=== PATIENT | female | born 1960 | race Caucasian/White ===

== ENCOUNTER 2020-11-06 21:11 | Inpatient (IN) ==
[2020-11-06] MEDS ORDERED: ONDANSETRON 4 MG/2 ML VIAL IV STA (21:53)
[2020-11-06] MEDS ORDERED: PIPERACILLIN/TAZOBACTAM 3,375 MG in SODIUM CHLORIDE 0.9% 100 ML IV STA (21:53)
[2020-11-06] MEDS ORDERED: ENOXAPARIN 100 MG/ML SYRINGE SUBCUT STA (21:57)
[2020-11-06] MEDS ORDERED: DEXTROSE 50% 25 GM/50 ML VIAL IV PRN (22:18)
[2020-11-06] MEDS ORDERED: MELATONIN 3 MG TABLET PO PRN (22:18)
[2020-11-06] MEDS ORDERED: GLUCAGON 1 MG VIAL IM PRN (22:18)
[2020-11-06] MEDS ORDERED: diphenhydrAMINE CAP 25 MG CAPSULE PO PRN (22:18)
[2020-11-06] MEDS ORDERED: hydrALAZINE 20 MG/1 ML VIAL IV PRN (22:18)
[2020-11-06] MEDS ORDERED: ONDANSETRON 4 MG/2 ML VIAL IV PRN (22:18)
[2020-11-06] MEDS ORDERED: NICOTINE 21 MG/24 HR PATCH TRANSDERM PRN (22:18)
[2020-11-06 22:36] LABS: Basophils % 0.3 % (0.0-0.8); Eosinophils % 0.1 % (0.00-10.9); Hematocrit 36.1 VOL% (35.7-47.0); Hemoglobin 11.7 GM/DL (12.0-16.0); Immature Granulocytes % 5.5 %; Immature Granulocytes Absolute 0.41 #; Lymphocytes # 0.6 10*3/uL (1.4-4.0); Lymphocytes % 8.3 % (21.3-54.2); Mean Corpuscular HGB Conc 32.4 GM/DL (32-36); Mean Corpuscular Volume 96.3 FL (87-102); Mean Platelet Volume 10.2 FL (9.6-12.0); NRBC # 0.05 10*3/uL; Neutrophils % 83.8 % (38.7-73.9); Platelet Count 335 T/CUMM (130-400); Red Blood Count 3.75 MC/CUMM (3.8-5.5); Red Cell Distribution Width 13.1 % (9.3-17.3); White Blood Count 7.5 T/CUMM (4-12)
[2020-11-06 23:12] LABS: Albumin 2.6 G/DL (3.4-5.0); Bilirubin,Total 0.8 MG/DL (0.20-1.00); Calcium 8.6 MG/DL (8.5-10.1); Osmolality,Calculated 265.5 MOS/KG (273-304); Potassium 4.3 MMOL/L (3.5-5.1); Total Protein 6.8 G/DL (6.4-8.2)
[2020-11-07] MEDS: SODIUM CHLORIDE 0.9% 1,000 ML IV SCH (00:20)
[2020-11-07] MEDS: ALBUMIN 25% 25 GM/100 ML VIAL IV SCH ×6 (00:20→22:22)
[2020-11-07] MEDS: FUROSEMIDE 40 MG/4 ML VIAL IV SCH ×6 (02:13→22:21)
[2020-11-07] MEDS ORDERED: REMDESIVIR 200 MG in SODIUM CHLORIDE 0.9% 210 ML IV ONE (08:00)
[2020-11-07] MEDS ORDERED: ZINC GLUCONATE 50 MG TABLET PO SCH (09:00)
[2020-11-07] MEDS ORDERED: FUROSEMIDE 40 MG/4 ML VIAL IV SCH (09:00)
[2020-11-07] MEDS ORDERED: CHOLECALCIFEROL 1,000 UNIT TABLET PO SCH (09:00)
[2020-11-07] MEDS ORDERED: DEXAMETHASONE 4 MG/1 ML VIAL IV SCH (09:00)
[2020-11-07 09:40] LABS: Basophils % 0.2 % (0.0-0.8); Hematocrit 33.8 VOL% (35.7-47.0); Immature Granulocytes % 5.9 %; Immature Granulocytes Absolute 0.28 #; Lymphocytes # 0.7 10*3/uL (1.4-4.0); Lymphocytes % 14.6 % (21.3-54.2); Mean Corpuscular HGB Conc 32.5 GM/DL (32-36); Mean Corpuscular Volume 96.3 FL (87-102); Mean Platelet Volume 10.3 FL (9.6-12.0); Monocytes % 3.3 % (1.7-12.7); NRBC # 0.04 10*3/uL; Platelet Count 321 T/CUMM (130-400); Red Blood Count 3.51 MC/CUMM (3.8-5.5); Red Cell Distribution Width 13.1 % (9.3-17.3); White Blood Count 4.8 T/CUMM (4-12)
[2020-11-07 10:00] LABS: Albumin 3.7 G/DL (3.4-5.0); Calcium 8.4 MG/DL (8.5-10.1); Osmolality,Calculated 266.5 MOS/KG (273-304); Potassium 3.7 MMOL/L (3.5-5.1); Total Protein 7.3 G/DL (6.4-8.2)
[2020-11-07 10:01] LABS: Atypical Lymphocytes Few; Band Neutrophils 1 % (0-10); Lymphocytes 21 % (20-55); Nucleated Red Blood Cells 1 (0-5); Segmented Neutrophils 74 % (50-85); Total Cells Counted 100
[2020-11-07 10:02] LABS: Macrocytosis Slight; Platelet Estimate Normal; Polychromasia Slight
[2020-11-07] MEDS: AZITHROMYCIN 250 MG TABLET PO SCH (11:15)
[2020-11-07] MEDS: CETIRIZINE 10 MG TABLET PO SCH (11:15)
[2020-11-07] MEDS: ASCORBIC ACID 500 MG TABLET PO SCH ×2 (11:16→22:22)
[2020-11-07] MEDS: ENOXAPARIN 40 MG/0.4 ML SYRINGE SUBCUT SCH ×2 (11:17→22:22)
[2020-11-07] MEDS: FAMOTIDINE 20 MG TABLET PO SCH ×2 (11:18→22:22)
[2020-11-07] MEDS: CHOLECALCIFEROL 5,000 UNIT TABLET PO SCH (15:00)
[2020-11-07] MEDS: DEXAMETHASONE 4 MG/1 ML VIAL IV SCH ×3 (15:18→22:29)
[2020-11-07] MEDS: ZINC GLUCONATE 50 MG TABLET PO SCH (15:18)
[2020-11-07] MEDS: MELATONIN 3 MG TABLET PO SCH (22:21)
[2020-11-08] MEDS: FUROSEMIDE 40 MG/4 ML VIAL IV SCH ×3 (00:19→10:06)
[2020-11-08] MEDS: ALBUMIN 25% 25 GM/100 ML VIAL IV SCH (00:19)
[2020-11-08] MEDS: DEXAMETHASONE 4 MG/1 ML VIAL IV SCH ×8 (01:10→22:16)
[2020-11-08] MEDS: SODIUM CHLORIDE 0.9% 1,000 ML IV SCH (01:10)
[2020-11-08 06:28] LABS: Basophils % 0.1 % (0.0-0.8); Hematocrit 31.6 VOL% (35.7-47.0); Hemoglobin 10.2 GM/DL (12.0-16.0); Immature Granulocytes % 2.5 %; Immature Granulocytes Absolute 0.21 #; Lymphocytes # 0.6 10*3/uL (1.4-4.0); Lymphocytes % 7.2 % (21.3-54.2); Mean Corpuscular HGB Conc 32.3 GM/DL (32-36); Mean Corpuscular Volume 97.5 FL (87-102); Mean Platelet Volume 10.5 FL (9.6-12.0); Monocytes % 4.8 % (1.7-12.7); NRBC # 0.03 10*3/uL; Neutrophils % 85.4 % (38.7-73.9); Platelet Count 339 T/CUMM (130-400); Red Blood Count 3.24 MC/CUMM (3.8-5.5); Red Cell Distribution Width 12.8 % (9.3-17.3); White Blood Count 8.5 T/CUMM (4-12)
[2020-11-08 07:09] LABS: Albumin 5.2 G/DL (3.4-5.0); Calcium 9.4 MG/DL (8.5-10.1); Ferritin 818.4 ng/ml (8-252); Osmolality,Calculated 279.7 MOS/KG (273-304); Potassium 3.4 MMOL/L (3.5-5.1); Total Protein 8.2 G/DL (6.4-8.2)
[2020-11-08] MEDS ORDERED: REMDESIVIR 100 MG in SODIUM CHLORIDE 0.9% 100 ML IV SCH (08:00)
[2020-11-08] MEDS: CHOLECALCIFEROL 5,000 UNIT TABLET PO SCH (10:03)
[2020-11-08] MEDS: ZINC GLUCONATE 50 MG TABLET PO SCH (10:03)
[2020-11-08] MEDS: FAMOTIDINE 20 MG TABLET PO SCH ×2 (10:04→22:16)
[2020-11-08] MEDS: ASCORBIC ACID 500 MG TABLET PO SCH ×2 (10:04→22:16)
[2020-11-08] MEDS: AZITHROMYCIN 250 MG TABLET PO SCH (10:04)
[2020-11-08] MEDS: CETIRIZINE 10 MG TABLET PO SCH (10:48)
[2020-11-08] MEDS: ENOXAPARIN 40 MG/0.4 ML SYRINGE SUBCUT SCH ×2 (10:49→22:15)
[2020-11-08] MEDS: POTASSIUM CHLORIDE 20 MEQ TABLET PO PRN ×3 (12:12→16:28)
[2020-11-08] MEDS: guaiFENesin/DM ER 600-30 MG TABLET PO PRN (14:33)
[2020-11-08] MEDS: IVERMECTIN 3 MG TABLET PO SCH (14:37)
[2020-11-08] MEDS: POTASSIUM CHLORIDE 20 MEQ TABLET PO SCH (22:15)
[2020-11-08] MEDS: MELATONIN 3 MG TABLET PO SCH (22:16)
[2020-11-09 05:11] LABS: Basophils % 0.1 % (0.0-0.8); Hematocrit 35.7 VOL% (35.7-47.0); Hemoglobin 11.2 GM/DL (12.0-16.0); Immature Granulocytes % 3.1 %; Immature Granulocytes Absolute 0.31 #; Lymphocytes # 0.8 10*3/uL (1.4-4.0); Lymphocytes % 7.7 % (21.3-54.2); Mean Corpuscular HGB Conc 31.4 GM/DL (32-36); Mean Corpuscular Volume 98.3 FL (87-102); Mean Platelet Volume 10.6 FL (9.6-12.0); Monocytes % 3.2 % (1.7-12.7); NRBC # 0.03 10*3/uL; Neutrophils % 85.9 % (38.7-73.9); Platelet Count 387 T/CUMM (130-400); Red Blood Count 3.63 MC/CUMM (3.8-5.5); Red Cell Distribution Width 12.9 % (9.3-17.3); White Blood Count 10.1 T/CUMM (4-12)
[2020-11-09 05:43] LABS: Albumin 4.4 G/DL (3.4-5.0); Bilirubin,Total 0.8 MG/DL (0.20-1.00); Ferritin 657.4 ng/ml (8-252); Osmolality,Calculated 285.5 MOS/KG (273-304); Potassium 4.8 MMOL/L (3.5-5.1); Total Protein 7.5 G/DL (6.4-8.2)
[2020-11-09] MEDS: ENOXAPARIN 40 MG/0.4 ML SYRINGE SUBCUT SCH ×2 (10:56→20:47)
[2020-11-09] MEDS: POTASSIUM CHLORIDE 20 MEQ TABLET PO SCH (10:56)
[2020-11-09] MEDS: IVERMECTIN 3 MG TABLET PO SCH (10:58)
[2020-11-09] MEDS: ASCORBIC ACID 500 MG TABLET PO SCH ×2 (10:58→20:47)
[2020-11-09] MEDS: AZITHROMYCIN 250 MG TABLET PO SCH (10:59)
[2020-11-09] MEDS: CETIRIZINE 10 MG TABLET PO SCH (10:59)
[2020-11-09] MEDS: CHOLECALCIFEROL 5,000 UNIT TABLET PO SCH (10:59)
[2020-11-09] MEDS: ZINC GLUCONATE 50 MG TABLET PO SCH (10:59)
[2020-11-09] MEDS: FAMOTIDINE 20 MG TABLET PO SCH ×2 (11:07→20:47)
[2020-11-09] MEDS: MELATONIN 3 MG TABLET PO SCH (20:47)
[2020-11-09] MEDS: ACETAMINOPHEN 325 MG TABLET PO PRN (23:30)
[2020-11-10 04:05] LABS: Eosinophils % 0.2 % (0.00-10.9); Hematocrit 36.5 VOL% (35.7-47.0); Hemoglobin 11.7 GM/DL (12.0-16.0); Immature Granulocytes % 2.2 %; Lymphocytes # 1.4 10*3/uL (1.4-4.0); Lymphocytes % 15.8 % (21.3-54.2); Mean Corpuscular HGB Conc 32.1 GM/DL (32-36); Mean Corpuscular Volume 98.1 FL (87-102); Mean Platelet Volume 10.4 FL (9.6-12.0); Neutrophils % 78.8 % (38.7-73.9); Platelet Count 362 T/CUMM (130-400); Red Blood Count 3.72 MC/CUMM (3.8-5.5); Red Cell Distribution Width 12.9 % (9.3-17.3); White Blood Count 9.1 T/CUMM (4-12)
[2020-11-10 04:34] LABS: Albumin 3.9 G/DL (3.4-5.0); Bilirubin,Total 0.9 MG/DL (0.20-1.00); Calcium 9.2 MG/DL (8.5-10.1); Osmolality,Calculated 277.8 MOS/KG (273-304); Potassium 4.6 MMOL/L (3.5-5.1); Total Protein 6.8 G/DL (6.4-8.2)
[2020-11-10 04:36] LABS: Ferritin 554.2 ng/ml (8-252)
[2020-11-10] MEDS: ACETAMINOPHEN 325 MG TABLET PO PRN (08:57)
[2020-11-10] MEDS: CHOLECALCIFEROL 5,000 UNIT TABLET PO SCH (08:57)
[2020-11-10] MEDS: ASCORBIC ACID 500 MG TABLET PO SCH ×2 (08:58→21:18)
[2020-11-10] MEDS: AZITHROMYCIN 250 MG TABLET PO SCH (08:58)
[2020-11-10] MEDS: FAMOTIDINE 20 MG TABLET PO SCH ×2 (08:58→21:18)
[2020-11-10] MEDS: IVERMECTIN 3 MG TABLET PO SCH (08:58)
[2020-11-10] MEDS: ENOXAPARIN 40 MG/0.4 ML SYRINGE SUBCUT SCH ×2 (08:58→21:14)
[2020-11-10] MEDS: CETIRIZINE 10 MG TABLET PO SCH (08:58)
[2020-11-10] MEDS: ZINC GLUCONATE 50 MG TABLET PO SCH (09:46)
[2020-11-10] MEDS: DEXAMETHASONE 4 MG/1 ML VIAL IV SCH (16:40)
[2020-11-10] MEDS: MELATONIN 3 MG TABLET PO SCH (21:18)
[2020-11-11 05:18] LABS: Ferritin 930.2 ng/ml (8-252)
[2020-11-11 05:22] LABS: Albumin 3.5 G/DL (3.4-5.0); Calcium 9.2 MG/DL (8.5-10.1); Osmolality,Calculated 275.8 MOS/KG (273-304); Potassium 4.9 MMOL/L (3.5-5.1); Total Protein 7.1 G/DL (6.4-8.2)
[2020-11-11] MEDS: ZINC GLUCONATE 50 MG TABLET PO SCH (08:21)
[2020-11-11] MEDS: ASCORBIC ACID 500 MG TABLET PO SCH ×2 (08:21→21:24)
[2020-11-11] MEDS: CHOLECALCIFEROL 5,000 UNIT TABLET PO SCH (08:21)
[2020-11-11] MEDS: ENOXAPARIN 40 MG/0.4 ML SYRINGE SUBCUT SCH ×2 (08:21→21:24)
[2020-11-11] MEDS: CETIRIZINE 10 MG TABLET PO SCH (08:22)
[2020-11-11] MEDS: FAMOTIDINE 20 MG TABLET PO SCH ×2 (08:22→21:24)
[2020-11-11] MEDS: DEXAMETHASONE 4 MG/1 ML VIAL IV SCH (08:22)
[2020-11-11] MEDS: IVERMECTIN 3 MG TABLET PO SCH (08:23)
[2020-11-11] MEDS: guaiFENesin/DM ER 600-30 MG TABLET PO PRN (21:24)
[2020-11-11] MEDS: MELATONIN 3 MG TABLET PO SCH (21:24)
[2020-11-12 05:38] LABS: Basophils % 0.1 % (0.0-0.8); Hematocrit 34.6 VOL% (35.7-47.0); Hemoglobin 11.1 GM/DL (12.0-16.0); Immature Granulocytes % 1.4 %; Immature Granulocytes Absolute 0.12 #; Lymphocytes # 0.9 10*3/uL (1.4-4.0); Lymphocytes % 10.4 % (21.3-54.2); Mean Corpuscular HGB Conc 32.1 GM/DL (32-36); Mean Corpuscular Volume 97.2 FL (87-102); Mean Platelet Volume 10.4 FL (9.6-12.0); Monocytes % 3.4 % (1.7-12.7); Neutrophils % 84.7 % (38.7-73.9); Platelet Count 340 T/CUMM (130-400); Red Blood Count 3.56 MC/CUMM (3.8-5.5); Red Cell Distribution Width 12.7 % (9.3-17.3); White Blood Count 8.6 T/CUMM (4-12)
[2020-11-12 06:01] LABS: Calcium 9.4 MG/DL (8.5-10.1); Osmolality,Calculated 276.8 MOS/KG (273-304); Potassium 4.5 MMOL/L (3.5-5.1)
[2020-11-12 06:03] LABS: Ferritin 1003.1 ng/ml (8-252)
[2020-11-12] MEDS: ASCORBIC ACID 500 MG TABLET PO SCH ×2 (10:00→20:56)
[2020-11-12] MEDS: ZINC GLUCONATE 50 MG TABLET PO SCH (10:03)
[2020-11-12] MEDS: CHOLECALCIFEROL 5,000 UNIT TABLET PO SCH (10:04)
[2020-11-12] MEDS: CETIRIZINE 10 MG TABLET PO SCH (10:04)
[2020-11-12] MEDS: IVERMECTIN 3 MG TABLET PO SCH (10:05)
[2020-11-12] MEDS: FAMOTIDINE 20 MG TABLET PO SCH ×2 (10:05→20:56)
[2020-11-12] MEDS: ENOXAPARIN 40 MG/0.4 ML SYRINGE SUBCUT SCH ×2 (10:07→20:56)
[2020-11-12] MEDS: DEXAMETHASONE 4 MG/1 ML VIAL IV SCH (10:10)
[2020-11-12] MEDS: MELATONIN 3 MG TABLET PO SCH (20:56)
[2020-11-13 05:05] LABS: Basophils % 0.1 % (0.0-0.8); Hematocrit 35.8 VOL% (35.7-47.0); Hemoglobin 11.6 GM/DL (12.0-16.0); Immature Granulocytes % 1.3 %; Immature Granulocytes Absolute 0.11 #; Lymphocytes # 0.8 10*3/uL (1.4-4.0); Lymphocytes % 9.1 % (21.3-54.2); Mean Corpuscular HGB Conc 32.4 GM/DL (32-36); Mean Corpuscular Volume 96.2 FL (87-102); Mean Platelet Volume 10.4 FL (9.6-12.0); Monocytes % 3.8 % (1.7-12.7); Neutrophils % 85.7 % (38.7-73.9); Platelet Count 334 T/CUMM (130-400); Red Blood Count 3.72 MC/CUMM (3.8-5.5); Red Cell Distribution Width 12.8 % (9.3-17.3); White Blood Count 8.8 T/CUMM (4-12)
[2020-11-13 05:20] LABS: Calcium 9.7 MG/DL (8.5-10.1); Osmolality,Calculated 275.8 MOS/KG (273-304); Potassium 5.2 MMOL/L (3.5-5.1)
[2020-11-13 05:24] LABS: Ferritin 785.4 ng/ml (8-252)
[2020-11-13] MEDS: ENOXAPARIN 40 MG/0.4 ML SYRINGE SUBCUT SCH ×2 (08:59→20:43)
[2020-11-13] MEDS: ASCORBIC ACID 500 MG TABLET PO SCH ×2 (09:00→20:43)
[2020-11-13] MEDS: FAMOTIDINE 20 MG TABLET PO SCH ×2 (09:00→20:43)
[2020-11-13] MEDS: CHOLECALCIFEROL 5,000 UNIT TABLET PO SCH (09:00)
[2020-11-13] MEDS: ZINC GLUCONATE 50 MG TABLET PO SCH (09:00)
[2020-11-13] MEDS: DEXAMETHASONE 4 MG/1 ML VIAL IV SCH (09:00)
[2020-11-13] MEDS: CETIRIZINE 10 MG TABLET PO SCH (09:00)
[2020-11-13 17:25] LABS: Osmolality,Calculated 277.1 MOS/KG (273-304); Potassium 4.6 MMOL/L (3.5-5.1)
[2020-11-13] MEDS: MELATONIN 3 MG TABLET PO SCH (20:43)
[2020-11-14 05:27] LABS: Basophils % 0.1 % (0.0-0.8); Eosinophils % 0.1 % (0.00-10.9); Hematocrit 35.7 VOL% (35.7-47.0); Hemoglobin 11.2 GM/DL (12.0-16.0); Immature Granulocytes % 1.5 %; Immature Granulocytes Absolute 0.11 #; Lymphocytes # 1.2 10*3/uL (1.4-4.0); Lymphocytes % 16.1 % (21.3-54.2); Mean Corpuscular HGB Conc 31.4 GM/DL (32-36); Mean Corpuscular Volume 98.3 FL (87-102); Mean Platelet Volume 10.7 FL (9.6-12.0); Monocytes % 6.3 % (1.7-12.7); Neutrophils % 75.9 % (38.7-73.9); Platelet Count 328 T/CUMM (130-400); Red Blood Count 3.63 MC/CUMM (3.8-5.5); Red Cell Distribution Width 12.8 % (9.3-17.3); White Blood Count 7.6 T/CUMM (4-12)
[2020-11-14 05:50] LABS: Lymphocytes 13 % (20-55); Microcytosis 1+; Segmented Neutrophils 80 % (50-85); Total Cells Counted 100
[2020-11-14 05:51] LABS: Platelet Estimate Normal
[2020-11-14 05:56] LABS: Calcium 9.3 MG/DL (8.5-10.1); Osmolality,Calculated 277.7 MOS/KG (273-304); Potassium 4.8 MMOL/L (3.5-5.1)
[2020-11-14 05:59] LABS: Ferritin 621.4 ng/ml (8-252)
[2020-11-14] MEDS: ZINC GLUCONATE 50 MG TABLET PO SCH (09:06)
[2020-11-14] MEDS: CHOLECALCIFEROL 5,000 UNIT TABLET PO SCH (09:06)
[2020-11-14] MEDS: CETIRIZINE 10 MG TABLET PO SCH (09:06)
[2020-11-14] MEDS: FAMOTIDINE 20 MG TABLET PO SCH ×2 (09:06→21:11)
[2020-11-14] MEDS: DEXAMETHASONE 4 MG/1 ML VIAL IV SCH (09:07)
[2020-11-14] MEDS: ASCORBIC ACID 500 MG TABLET PO SCH ×2 (09:07→21:12)
[2020-11-14] MEDS: ENOXAPARIN 40 MG/0.4 ML SYRINGE SUBCUT SCH ×2 (09:07→21:12)
[2020-11-14] MEDS: MELATONIN 3 MG TABLET PO SCH (21:12)
[2020-11-15 05:11] LABS: Basophils % 0.1 % (0.0-0.8); Eosinophils % 0.3 % (0.00-10.9); Hemoglobin 11.1 GM/DL (12.0-16.0); Immature Granulocytes Absolute 0.14 #; Lymphocytes # 1.2 10*3/uL (1.4-4.0); Mean Corpuscular HGB Conc 31.7 GM/DL (32-36); Mean Corpuscular Volume 98.9 FL (87-102); Mean Platelet Volume 10.7 FL (9.6-12.0); Monocytes % 8.2 % (1.7-12.7); Neutrophils % 72.4 % (38.7-73.9); Platelet Count 287 T/CUMM (130-400); Red Blood Count 3.54 MC/CUMM (3.8-5.5); White Blood Count 7.2 T/CUMM (4-12)
[2020-11-15 05:36] LABS: Lymphocytes 17 % (20-55); Platelet Estimate Normal; Segmented Neutrophils 80 % (50-85); Total Cells Counted 100
[2020-11-15 06:13] LABS: Osmolality,Calculated 279.5 MOS/KG (273-304); Potassium 4.3 MMOL/L (3.5-5.1)
[2020-11-15] MEDS: FAMOTIDINE 20 MG TABLET PO SCH ×2 (09:01→20:40)
[2020-11-15] MEDS: CETIRIZINE 10 MG TABLET PO SCH (09:01)
[2020-11-15] MEDS: ASCORBIC ACID 500 MG TABLET PO SCH ×2 (09:01→20:40)
[2020-11-15] MEDS: ZINC GLUCONATE 50 MG TABLET PO SCH (09:01)
[2020-11-15] MEDS: CHOLECALCIFEROL 5,000 UNIT TABLET PO SCH (09:01)
[2020-11-15] MEDS: ENOXAPARIN 40 MG/0.4 ML SYRINGE SUBCUT SCH ×2 (09:02→20:40)
[2020-11-15] MEDS: DEXAMETHASONE 4 MG/1 ML VIAL IV SCH (09:02)
[2020-11-15] MEDS: MELATONIN 3 MG TABLET PO SCH (20:40)
[2020-11-16 06:26] LABS: Basophils % 0.1 % (0.0-0.8); Eosinophils % 0.5 % (0.00-10.9); Hematocrit 35.8 VOL% (35.7-47.0); Hemoglobin 11.3 GM/DL (12.0-16.0); Immature Granulocytes % 3.2 %; Immature Granulocytes Absolute 0.24 #; Lymphocytes # 1.6 10*3/uL (1.4-4.0); Lymphocytes % 21.7 % (21.3-54.2); Mean Corpuscular HGB Conc 31.6 GM/DL (32-36); Mean Platelet Volume 10.2 FL (9.6-12.0); Monocytes % 6.7 % (1.7-12.7); Neutrophils % 67.8 % (38.7-73.9); Platelet Count 289 T/CUMM (130-400); Red Blood Count 3.58 MC/CUMM (3.8-5.5); White Blood Count 7.4 T/CUMM (4-12)
[2020-11-16 06:47] LABS: Calcium 9.3 MG/DL (8.5-10.1); Osmolality,Calculated 274.8 MOS/KG (273-304); Potassium 5.2 MMOL/L (3.5-5.1)
[2020-11-16 06:53] LABS: Anisocytosis 2+; Platelet Estimate Normal
[2020-11-16 06:54] LABS: Macrocytosis 1+
[2020-11-16] MEDS: ZINC GLUCONATE 50 MG TABLET PO SCH (09:32)
[2020-11-16] MEDS: ENOXAPARIN 40 MG/0.4 ML SYRINGE SUBCUT SCH ×2 (09:43→21:18)
[2020-11-16] MEDS: ASCORBIC ACID 500 MG TABLET PO SCH ×2 (09:43→21:18)
[2020-11-16] MEDS: DEXAMETHASONE 4 MG/1 ML VIAL IV SCH (09:43)
[2020-11-16] MEDS: FAMOTIDINE 20 MG TABLET PO SCH ×2 (09:43→21:18)
[2020-11-16] MEDS: CHOLECALCIFEROL 5,000 UNIT TABLET PO SCH (09:43)
[2020-11-16] MEDS: CETIRIZINE 10 MG TABLET PO SCH (09:43)
[2020-11-16] MEDS: MELATONIN 3 MG TABLET PO SCH (21:18)
[2020-11-17 06:09] LABS: Basophils % 0.2 % (0.0-0.8); Eosinophils % 0.3 % (0.00-10.9); Hemoglobin 11.3 GM/DL (12.0-16.0); Immature Granulocytes % 4.5 %; Immature Granulocytes Absolute 0.39 #; Lymphocytes # 1.7 10*3/uL (1.4-4.0); Lymphocytes % 19.1 % (21.3-54.2); Mean Corpuscular HGB Conc 31.4 GM/DL (32-36); Mean Corpuscular Volume 99.4 FL (87-102); Mean Platelet Volume 10.2 FL (9.6-12.0); Monocytes % 5.8 % (1.7-12.7); Neutrophils % 70.1 % (38.7-73.9); Platelet Count 259 T/CUMM (130-400); Red Blood Count 3.62 MC/CUMM (3.8-5.5); Red Cell Distribution Width 13.1 % (9.3-17.3); White Blood Count 8.6 T/CUMM (4-12)
[2020-11-17 06:41] LABS: Calcium 9.2 MG/DL (8.5-10.1); Ferritin 404.3 ng/ml (8-252); Osmolality,Calculated 275.8 MOS/KG (273-304); Potassium 4.6 MMOL/L (3.5-5.1)
[2020-11-17] MEDS: ZINC GLUCONATE 50 MG TABLET PO SCH (09:08)
[2020-11-17] MEDS: CETIRIZINE 10 MG TABLET PO SCH (09:09)
[2020-11-17] MEDS: FAMOTIDINE 20 MG TABLET PO SCH ×2 (09:09→20:44)
[2020-11-17] MEDS: ASCORBIC ACID 500 MG TABLET PO SCH ×2 (09:09→20:44)
[2020-11-17] MEDS: ENOXAPARIN 40 MG/0.4 ML SYRINGE SUBCUT SCH ×2 (09:09→20:43)
[2020-11-17] MEDS: CHOLECALCIFEROL 5,000 UNIT TABLET PO SCH (09:09)
[2020-11-17] MEDS: MELATONIN 3 MG TABLET PO SCH (23:53)
[2020-11-18 06:21] LABS: Basophils % 0.1 % (0.0-0.8); Eosinophils # 0.1 10*3/uL (0.0-0.87); Eosinophils % 1.1 % (0.00-10.9); Hematocrit 34.7 VOL% (35.7-47.0); Hemoglobin 10.7 GM/DL (12.0-16.0); Immature Granulocytes % 4.1 %; Immature Granulocytes Absolute 0.33 #; Lymphocytes % 25.1 % (21.3-54.2); Mean Corpuscular HGB Conc 30.8 GM/DL (32-36); Mean Corpuscular Volume 99.7 FL (87-102); Mean Platelet Volume 10.2 FL (9.6-12.0); NRBC # 0.02 10*3/uL; Neutrophils % 63.6 % (38.7-73.9); Platelet Count 249 T/CUMM (130-400); Red Blood Count 3.48 MC/CUMM (3.8-5.5); Red Cell Distribution Width 13.7 % (9.3-17.3); White Blood Count 8.1 T/CUMM (4-12)
[2020-11-18 06:42] LABS: Calcium 8.6 MG/DL (8.5-10.1); Ferritin 354.2 ng/ml (8-252); Osmolality,Calculated 279.5 MOS/KG (273-304); Potassium 3.6 MMOL/L (3.5-5.1)
[2020-11-18] MEDS: ENOXAPARIN 40 MG/0.4 ML SYRINGE SUBCUT SCH ×2 (09:20→22:21)
[2020-11-18] MEDS: ZINC GLUCONATE 50 MG TABLET PO SCH (09:20)
[2020-11-18] MEDS: FAMOTIDINE 20 MG TABLET PO SCH ×2 (09:20→22:20)
[2020-11-18] MEDS: CETIRIZINE 10 MG TABLET PO SCH (09:21)
[2020-11-18] MEDS: ASCORBIC ACID 500 MG TABLET PO SCH ×2 (09:21→22:20)
[2020-11-18] MEDS: CHOLECALCIFEROL 5,000 UNIT TABLET PO SCH (09:21)
[2020-11-18] MEDS: MELATONIN 3 MG TABLET PO SCH (22:21)
[2020-11-19] MEDS: ASCORBIC ACID 500 MG TABLET PO SCH (08:25)
[2020-11-19] MEDS: FAMOTIDINE 20 MG TABLET PO SCH (08:25)
[2020-11-19] MEDS: CETIRIZINE 10 MG TABLET PO SCH (08:26)
[2020-11-19] MEDS: ZINC GLUCONATE 50 MG TABLET PO SCH (08:26)
[2020-11-19] MEDS: CHOLECALCIFEROL 5,000 UNIT TABLET PO SCH (08:26)
[2020-11-19] MEDS: ENOXAPARIN 40 MG/0.4 ML SYRINGE SUBCUT SCH ×2 (08:27→08:34)
[2020-11-19 15:29] VITALS: BP 113/66
[2020-11-19] MEDS ORDERED: RIVAROXABAN 10 MG TABLET PO SCH (21:00)
== END 2020-11-19 17:13 | disposition home or self-care (01) | DRG 177 ==
LOC: EDBD → N.ED 21:11 → SUATTDRO 22:18 → N.EDINP 22:18 → N.2E 11-07 18:52 → N.5E 11-16 13:13
PROVIDERS: ADMIT Hospitalist; ATTEND Hospitalist